=== PATIENT | female | born 1945 | race Caucasian/White ===

== ENCOUNTER 2019-11-06 07:14 | Observation (INO) ==
[2019-11-06 07:48] LABS: Basophils % 0.4 %; Eosinophils % 0.6 %; Hematocrit 39.5 % (35.3-44.9); Hemoglobin 12.6 g/dL (11.5-15.4); Immature Granulocytes % 0.4 % (0-4); Lymphocytes # 0.7 K/mcL (0.6-4.6); Lymphocytes % 13.1 %; Mean Corpuscular HGB Conc 31.9 g/dL (31.6-35.5); Mean Corpuscular Hemoglobin 29.5 pg (28.0-33.3); Mean Corpuscular Volume 92.5 fL (83.0-100.0); Mean Platelet Volume 10.1 fL (9.4-12.4); Monocytes # 0.2 K/mcL (0.0-1.3); Monocytes % 4.6 %; Platelet Count 198 K/mcL (140-400); Red Blood Count 4.27 M/mcL (3.82-4.97); Red Cell Distribution Width 13.9 % (11.5-14.5); Segmented Neutrophils % 80.9 %
[2019-11-06 07:58] LABS: INR 0.9; Prothrombin Time 10.7 Seconds (9.4-12.1)
[2019-11-06] MEDS ORDERED: 0.9 % Sodium Chloride 1,000 ML IVC ONE ×2 (08:06→08:23)
[2019-11-06 08:10] LABS: Alanine Aminotransferase 61 Units/L (7-52); Albumin 4.9 g/dL (3.5-5.7); Alkaline Phosphatase 57 Units/L (34-104); Aspartate Amino Transferase 102 Units/L (13-39); BUN/Creatinine Ratio 26 (6-26); Bilirubin,Direct 0.5 mg/dL (0.0-0.2); Bilirubin,Indirect 0.7 mg/dL (0.0-1.0); Bilirubin,Total 1.2 mg/dL (0.3-1.0); Blood Urea Nitrogen 16 mg/dL (8-23); Calcium 10.2 mg/dL (8.6-10.3); Carbon Dioxide 28 mEq/L (23-29); Chloride 102 mEq/L (98-107); Globulin 2.5 g/dL (2.4-3.5); Glucose 167 mg/dL (70-105); Lipase 46 Units/L (11-82); Osmolality,Calculated 297 (280-300); Potassium 3.6 mEq/L (3.5-5.1); Sodium 141 mEq/L (136-145); Total Protein 7.4 g/dL (6.4-8.9); Troponin I < 0.03 ng/mL (< 0.04); eGFR For African Americans > 60 (> 60); eGFR For Non-African Americans > 60 (> 60)
[2019-11-06] MEDS ORDERED: Piperacillin/Tazobactam 3.375 GM in Water for inj. (sterile) 20 ML IVP ONE (08:23)
[2019-11-06 09:10] LABS: Bilirubin,Urine Negative (Negative); Blood,Urine Negative (Negative); Clarity,Urine Clear (Clear); Color,Urine Yellow (Yellow); Glucose,Urine (UA) Normal (Normal); Ketones,Urine Negative (Negative); Leukocyte Esterase,Urine Small (Negative); Nitrite,Urine Negative (Negative); PH,Urine 7.5 pH Units (5.0-8.0); Protein,Urine Negative (Neg-Trace); Specific Gravity,Urine 1.016 (1.010-1.025); Urobilinogen,Urine Normal (Normal)
[2019-11-06 09:12] LABS: Bacteria,Urine None Seen per hpf (None-Few); Hyaline Casts,Urine None Seen per lpf (None-Few); RBC,Urine 0-3 per hpf (0-3); Squamous Epithelial Cell,Urine Moderate per lpf (None-Few); WBC,Urine 0-3 per hpf (0-3)
[2019-11-06] MEDS ORDERED: cefOXitin 1,000 MG, 0.9 % Sodium Chloride 1,000 ML IR ONE (10:00)
[2019-11-06] MEDS ORDERED: Ondansetron 4 MG/2 ML VIAL IVP PRN ×3 (10:08→19:40)
[2019-11-06] MEDS ORDERED: 0.9 % Sodium Chloride 1,000 ML IVC SCH ×3 (10:08→19:45)
[2019-11-06] MEDS ORDERED: CeFAZolin Syr 2,000MG/20 ML 2,000 MG/20 ML SYRINGE IVPB SCH (16:00)
[2019-11-06] MEDS ORDERED: *HR* FentaNYL (PF) 100 MCG/2 ML VIAL ONE (16:27)
[2019-11-06] MEDS ORDERED: *HR* Propofol 200 MG/20 ML VIAL IVP ONE (16:27)
[2019-11-06] MEDS ORDERED: *HR* Rocuronium Bromide 50 MG/5 ML VIAL ONE (16:28)
[2019-11-06] MEDS ORDERED: Lidocaine -MPF 2% 2 ML VIAL ONE (16:28)
[2019-11-06] MEDS ORDERED: CefOXitin 1,000 MG VIAL ONE (16:32)
[2019-11-06] MEDS ORDERED: Acetaminophen IV 1,000 MG/100 ML INFUS..BTL ONE (16:34)
[2019-11-06] MEDS ORDERED: Famotidine 20 MG/2 ML VIAL ONE (16:35)
[2019-11-06] MEDS ORDERED: Ondansetron 4 MG/2 ML VIAL ONE (16:57)
[2019-11-06] MEDS ORDERED: Dexamethasone 4 MG/ML VIAL ONE (16:57)
[2019-11-06] MEDS ORDERED: *HR* OxyCODONE Immed Rel 5 MG TABLET PO PRN (17:33)
[2019-11-06] MEDS ORDERED: Ondansetron 4 MG/2 ML VIAL IVP ONE (17:33)
[2019-11-06] MEDS: *HR* HYDROmorphone PF 0.5 MG/0.5 ML SYRINGE IVP PRN ×2 (17:44→17:55)
[2019-11-06] MEDS ORDERED: *HR* OxyCODONE/APAP 5/325 TABLET PO PRN (19:41)
[2019-11-06] MEDS: cefOXitin 1,000 MG in Water for inj. (sterile) 10 ML IVP SCH (23:46)
[2019-11-07 06:43] VITALS: BP 110/63
[2019-11-07] MEDS: cefOXitin 1,000 MG in Water for inj. (sterile) 10 ML IVP SCH (08:48)
== END 2019-11-07 10:25 | disposition home or self-care (01) ==
LOC: 3ANU 07:14 → EMEROOARM 07:14 → 3ANU 09:44
PROVIDERS: ADMIT Surgery; ATTEND Surgery